=== PATIENT | female | born 1955 | race Asian ===

== ENCOUNTER → 2024-04-27 13:33 | Outpatient (REF) | payer MEDICARE, OTHER, SELFPAY | LOC: WDC 13:33 | PROVIDERS: ATTENDING PHYSICIAN Family Medicine | DX: M85.89 Other specified disorders of bone density and structure, multiple sites (principal); Z12.31 Encounter for screening mammogram for malignant neoplasm of breast | CPT/HCPCS: 77063; 77067; 77080 ==

== ENCOUNTER 2024-10-18 19:06 | Emergency (ER) | payer MEDICARE, OTHER, SELFPAY ==
[2024-10-18 19:09] VITALS: BP 160/91
[2024-10-18 19:34] LABS: Hematocrit 46.1 % (37.0-47.0); Hemoglobin 15.3 g/dL (12.0-16.0); Mean Corp Hgb Conc. 33.2 g/dL (33.0-37.0); Mean Corpuscular Volume 91.8 fL (81.0-99.0); Nucleated Red Blood Cells % 0 %; Platelet Count 257 10^3/uL (130-400); Red Cell Dist. Width 12.6 % (11.5-14.5)
[2024-10-18 19:58] LABS: Blood Urea Nitrogen 15 mg/dl (7-17); Calcium 10.3 mg/dl (8.4-10.2); Carbon Dioxide 26 mmol/L (22-30); Chloride 107 mmol/L (98-107); Glucose 91 mg/dl (70-99); Sodium 140 mmol/L (135-145); eGFR > 60.00
[2024-10-18 20:10] LABS: Troponin I < 0.012 ng/ml
[2024-10-18 21:25] VITALS: BP 144/82
[2024-10-18 21:27] VITALS: BMI 24.3
[2024-10-18 22:00] VITALS: BP 135/80
[2024-10-18 23:00] VITALS: BP 125/99
--- NOTE | 2024-10-18 23:03 | ED.GENMED ---
History of Present Illness
General
Chief Complaint: Chest Pain
Source: patient and spouse
Exam Limitations: none
Time Seen by Provider: 10/18/24 21:10
Nursing documentation reviewed up to this point in time: agreed with
History of Present Illness
History of Present Illness:
69 yo female with hx HLD, presents dizziness and facial numbness. Her symptoms began in the morning around 10:30 AM. She described waking up with a heavy head and feeling wobbly while walking, yet she still managed to engage in household tasks such
as vacuuming and preparing lunch. Her blood pressure, as measured by her at that time, was initially 'high for me' at 130/80 mmHg and later 160/90 mmHg. She is feeling much better now.
While here, she experienced numbness in her face, especially around her lips, and mentioned a tingling sensation. Her hands have been numb off and on for the past couple of days. The patient expressed concern about a possible stroke due to her son�s
history of TIA but has not experienced numbness or tingling in her limbs aside from her hands.
There is no history of chest pain, and the patient confirmed normal bowel movements with a resolution of recent constipation. She denied abdominal pain. Has normal urination.
Past History
Past History
ED Past Medical History: Other (Heavy menses)
Social History
Tobacco: Non-smoker
Personal:
Living: with family
Review of Systems
Review of Systems
Allergies reviewed?: Yes
All Other Systems: ROS reviewed and negative except as documented in HPI and ROS
Constitutional: Reports fatigue; Denies fever
Respiratory: Denies trouble breathing
Cardiac: Denies chest pain or palpitations
ABD/GI: Denies abdominal pain, nausea, vomiting, diarrhea, constipated or anorexia
: Denies dysuria, frequency or difficulty voiding
Musculoskeletal: Reports no symptoms
Skin: Reports no symptoms
Neurological: Reports dizzy and numbness (tingling in hands intermittently today); Denies headache or weakness
Psychiatric: Reports anxiety
Phy Exam
Physical Exam
Physical Exam:
GENERAL: No acute distress. A&Ox3.
CONSTITUTIONAL: Afebrile.
EYES: clear, conjunctivae normal
ENMT: moist mucus membranes, Pharynx nl
RESPIRATORY: Regular respirations, nonlabored, lungs clear.
CARDIOVASCULAR: Regular rate and rhythm, no murmurs, no rubs.
GI: Soft, nontender, normal BS
MUSCULOSKELETAL: Moves with ease. Well perfused.
SKIN: Warm, dry, pink
PSYCH: Normal mood and affect. Well kept, interactive and appropriate
NEUROLOGIC: Awake, alert and oriented. Cranial nerves II through XII intact. [id number] intact. Strength equal throughout. Ambulates well with steady gait. No focal neurological deficits
Scores
Heart Score for Chest Pain Patients
STEMI patient?: Not applicable
Course
Orders/Labs/Results
Orders:
Orders
10/18/24 19:07
Electrocardiogram (*1) Urgent
Reason for Study: Chest Pain
EKG- Treatment ONCE
10/18/24 19:14
Cardiac Monitoring- Treatment ONCE
EKG- Treatment ONCE
CR Chest - 2 Views Urgent
Comment:
Reason For Exam: respiratory distress
O2 Therapy [RESP] Urgent
Titrate/Wean O2 to maintain O2 sat greater than (%): 93
Special Instructions: TO MAINTAIN CONTINUOUS O2 SATS >/= 93%
Pulse Ox/cont/shift [RESP] Urgent
Quantity: 1
Special Instructions: continuous pulse ox
10/18/24 19:27
Basic Metabolic Panel Urgent
Complete Blood Count/With Diff Urgent
NT-proBNP Urgent
Troponin I Urgent
10/18/24 23:03
CT Head W/o Iv Contrast Urgent
Comment:
Reason For Exam: dizziness
10/19/24 00:29
Acetaminophen [Tylenol] 1,000 mg PO NOW STA
Abnormal Lab Results
10/18/24
19:27
Calcium 10.3 H mg/dl
(8.4-10.2)
10/18/24 19:27
10/18/24 19:27
Vital Signs
Initial and Last Documented VS:
Initial Vital Signs
Temp Pulse Resp BP Pulse Ox
97.2 F 56 20 160/91 99
10/18/24 19:09 10/18/24 19:09 10/18/24 19:09 10/18/24 19:09 10/18/24 19:09
Last Documented Vital Signs
Temp Pulse Resp BP Pulse Ox
97.2 F 58 14 125/99 99
10/18/24 19:09 10/18/24 23:34 10/18/24 23:34 10/18/24 23:00 10/19/24 00:00
MDM/Problems Addressed
Differential Diagnosis Includes:
Anxiety-related dizziness
- Benign paroxysmal positional vertigo
- Vestibular neuritis
- Transient ischemic attack
- Otitis media or inner ear infection
- Stroke
- Hypertension
- - Dehydration
- Hypoglycemia
MDM/Problems Addressed:
69 yo female with hx HLD, presents dizziness and facial numbness. Her symptoms began in the morning around 10:30 AM. She described waking up with a heavy head and feeling wobbly while walking, yet she still managed to engage in household tasks such
as vacuuming and preparing lunch. Her blood pressure, as measured by her at that time, was initially 'high for me' at 130/80 mmHg and later 160/90 mmHg. She is feeling much better now.
While here, she experienced numbness in her face, especially around her lips, and mentioned a tingling sensation. Her hands have been numb off and on for the past couple of days. The patient expressed concern about a possible stroke due to her son�s
history of TIA but has not experienced numbness or tingling in her limbs aside from her hands.
There is no history of chest pain, and the patient confirmed normal bowel movements with a resolution of recent constipation. She denied abdominal pain. Has normal urination.
In further conversation, patient and they are under a lots of stress as her son lost his job and he and his family (son, and 2 1/2 yo sone)are going to move in with them. She just got through nursing her after he got a heart
transplant. She is tearful explaining her stress.
EKG sinus bradycardia
CBC, CMP normal
Troponin WNL
BP has normalized, pt is no longer dizzy.
All lab results, including troponin levels, were noted as normal, indicating no myocardial damage. The patient�s liver and kidney functions are within normal limits. An electrocardiogram and chest X-ray were also normal. The patient did not undergo
a computed tomography scan of the head at the time of the visit, but this was considered for reassurance regarding stroke concerns.
Plan:
- Consider a computed tomography scan of the head to rule out neurological events such as stroke for patient reassurance.
- Discuss stress management and coping strategies related to family dynamics and living conditions.
- Reassure the patient regarding the normality of her tests to alleviate anxiety regarding serious medical conditions.
- Schedule appropriate follow-up based on the outcomes of the scan and symptom progression.
12:15 AM 10/19/[address]: NAD
Headache 06/06. Tylenol ordered
Pt reassured of unremarkable work up
Pt stable for discharge. she is smiling and she and very appreciative of the care
*Pulse Oximetry
SaO2: 99
Oxygen Mode of Delivery: Room air
Patient hypoxic: not evaluated
*EKG
EKG Intrepretation Date: 10/18/24
Interpretation: abnormal
Heart Rate: 54
Rate: bradycardiac
Rhythm: sinus
[place]: normal axis
Interval: normal interval
QRS Pattern: normal QRS
Ischemia: no ischemia
*Critical Care Note
Total Time (30-74mins, 75-104mins- exclusive of procedures): Not Applicable
ED Attending Note
-
Portions of this chart may have been created with voice recognition software.� Occasional wrong word or��sound alike� substitutions may have occurred due to the inherent limitations of voice recognition software.
Discharge Plan
Departure
Patient Disposition: Home (Routine Discharge)
Date of Disposition: 10/19/24
Time of Disposition: 00:19
Patient with high blood pressure during this ER visit?: No
Condition: Good
Discharge Problem:
Stress, Atypical chest pain
Instructions: Chest Pain That Is Not Caused by the Heart (DC), Dizziness in adults - ED discharge instructions
Prescriptions:
No Action
valacyclovir [Valtrex] 1,000 MG tablet
1,000 mg PO PRN PRN (Reason: herpes virus s/s)
lorazepam 0.5 MG tablet
0.5 mg PO DAILY PRN (Reason: sleep) Qty: 12 0RF
cephalexin 500 mg tablet
500 mg PO TID Qty: 30 0RF
Referrals:
Rob Salmeron MD [Family Provider, Family Practice] - As needed
Activity Restrictions/Additional Instructions:
As we discussed, your workup here tonight shows nothing worrisome. Specifically no sign of a heart attack, no stroke.
Interventions
Interventions:
*Risk Screen - Suicide Last Done: 10/18/24 19:09
*General Assessment Last Done: 10/18/24 19:09
*Neglect/Abuse Screening Last Done: 10/18/24 19:09
*ED- Fall Risk Assessment Last Done: 10/18/24 19:09
*ED COVID-19 Vaccine History Last Done: 10/18/24 19:09
*Nursing Disposition Last Done: 10/19/24 00:41
ED- Cardiac Assessment Last Done: 10/18/24 21:30
Discharge Date and Time
Discharge Date/Time: 10/19/24 00:42
Print Language: SINHALA
[2024-10-19] MEDS: TYLENOL 1000 MG PO (00:34)
== END 2024-10-19 00:42 | disposition home or self-care (01) ==
LOC: EMR 19:06
PROVIDERS: Emergency Medicine; EMERGENCY PHYSICIAN Emergency Medicine; FAMILY PHYSICIAN Family Medicine
DX: R07.89 Other chest pain (principal); E78.00 Pure hypercholesterolemia, unspecified; Z86.73 Personal history of transient ischemic attack (TIA), and cerebral infarction without residual deficits
CPT/HCPCS: 99284; 70450; 71046; 80048; 83880; 84484; 85025; 93005